=== PATIENT | female | born 1975 | race American Indian/Alaskan Native ===

== ENCOUNTER 2020-01-24 23:05 | Emergency (ER) | payer MEDICAID ==
[~2020-01-24 23:05] MED LIST: ATROPINE 0.1% (1 MG/10 ML) CARDIAC SYRINGE ONE; DOPamine/D5W 800 MG/250 ML DRIP IV ONE; EPINEPHrine 1 MG/10 ML SYRINGE ONE; LIDOCAINE MPF (2%) 20 MG/1 ML VIAL 5 ML ONE; LIDOCAINE/D5W 2 GM/500 ML (0.4%) DRIP IV ONE; SODIUM BICARB 8.4% 50 MEQ/50 ML SYRINGE IV ONE
[2020-01-24] MEDS ORDERED: DOPamine/D5W 800 MG/250 ML 800 MG/250 ML BAG IV ONE (23:33)
[2020-01-24] MEDS ORDERED: SODIUM CHLORIDE 0.9% 1000 ML 1,000 ML IV ONE (23:34)
--- NOTE | 2020-01-24 23:39 | Emergency Department Report ---
HPI - General Time Seen by Provider: 01/24/20 23:31 - HPI HPI: Room 2 The patient is a 44-year-old female present with a chief complaint of cardiac arrest. Per EMS they received a call for patient that was unresponsive. The circumstances surrounding the patient being found unresponsive are unknown by EMS. They arrived on scene at 22: 38 and immediately started CPR. Upon getting the patient to the ambulance she was found to be in V. fib and defibrillated x1. EMS states the patient entered asystole and ACLS protocols were continued. EMS was unable to intubate the patient but administered 3 rounds of epi and 1 round of sodium bicarb. Upon arrival to the ED the patient was intubated by myself using the glidescope after the first 2 initial attempts resulted in esophageal intubation is using direct laryngoscopy. There was return of spontaneous circulation ED Past Medical Hx - Past Medical History Hx of Cancer: Yes (Unknown type of CA) - Family History Family history: no significant - Social History Smoking Status: Unknown if ever smoked ED Review of Systems ROS: Stated complaint: HEART ATTACK/STROKE Other details as noted in HPI Comment: Unobtainable due to pts medical conditions Physical Exam - Physical Exam Physical Exam: GENERAL: The patient is a morbidly obese female HEENT: Normocephalic. Atraumatic. Oropharynx filled with copious serous brown fluid NECK: Supple. No meningitic signs are noted. There is no adenopathy noted. CHEST/LUNGS: Breath sounds equal bilaterally with bagging after intubation by myself HEART/CARDIOVASCULAR: Regular. There is no tachycardia. There is no gallop rub or murmur. ABDOMEN: Abdomen is soft, nontender. SKIN: There is no rash. There is no edema. There is no diaphoresis. NEURO: GCS 3 T MUSCULOSKELETAL:There is no evidence of acute injury. ED Course - Reevaluation(s) Reevaluation #1: 01/24/20 23:57 Patient found in PEA. Further resuscitative efforts deemed futile. Patient - Intubation Time Out Performed: No Sedative: none Laryngoscope: fiberoptic video scope Size: 3 ET Tube Size: 7.5 Tube Secured Depth (cm): 21 Tube Secured Location: lips Tube Placement Confirmation: visualized tube passing t, equal breath sounds bilat, no breath sounds over epi, confirmation by capnometr Intubation Complications: difficult intubation, other (First 2 attempts using direct laryngoscopy resulted in esophageal intubations. Endotracheal intubation achieved with use of glidescope) ED Medical Decision Making - Differential Diagnosis Cardiac arrest, symptomatic anemia Critical care attestation.: If time is entered above; I have spent that time in minutes in the direct care of this critically ill patient, excluding procedure time. ED Disposition Clinical Impression: Cardiac arrest Disposition: DC-20 Is pt being admited?: No Does the pt Need Aspirin: No Condition: Poor Referrals: PRIMARY CARE,MD [Primary Care Provider] - 3-5 Days Time of Disposition: 23:57 (Patient )
[2020-01-24] MEDS ORDERED: NORepinephrine/NS 4 MG-250 ML 4 MG/250 ML BAG IV SCH (23:45)
--- NOTE | 2020-01-25 00:07 | XRay Report ---
CHEST 1 VIEW INDICATION / CLINICAL INFORMATION: Cardiac arrest, status post intubation. COMPARISON: None available. FINDINGS: SUPPORT DEVICES: Tip of the endotracheal tube terminates approximately 1 cm above the level of the ca steve. Left-sided PICC with tip terminating near the cavoatrial junction. HEART / MEDIASTINUM: Cardiomegaly. LUNGS / PLEURA: There are extensive bilateral airspace opacities, most confluent in the left apex. Th ere also appears to be suture material seen in the left apex, so a component of this may reflect post surgical change. No large pleural effusion. No pneumothorax. ADDITIONAL FINDINGS: No significant additional findings. IMPRESSION: 1. Lines and tubes as above. 2. Cardiomegaly. 3. Extensive bilateral airspace opacities which are nonspecific but may be seen in the setting of benjamin ma or atypical/viral infection. There is more focal consolidative opacity in the left apex where ther e appears to be suture material, correlate with surgical history. 4. No pneumothorax. Signer Name: Sandra Anderson MD Signed: 01/25/2020 12:02 AM Workstation Name: [id number]
== END 2020-01-25 03:10 ==
LOC: ED 23:05
DX: I46.9 Cardiac arrest, cause unspecified (principal)
CPT/HCPCS: 31500; 71045; 99285; J0171; J0461; J1265; J2001; 92950; 94002